=== PATIENT | male | born 1965 | race Hispanic/Latino ===

== ENCOUNTER → 2018-04-02 | Day surgery (SDC) | payer OTHER ==
[~2018-04-02] MED LIST: AMLODIPINE BESY10 MG PO; FENTANYL CITRATE/PF 100MCG/2 ML INJ ONE; HUMIRA INJ; HYOSCYAMINE SULFATE 0.5 MG/ML AMP ONE; MIDAZOLAM HCL 2 MG/2 ML VIAL ONE; PROPOFOL IV EMULSION 10 MG/ML 50 ML VIAL ONE
[2018-04-02 15:30] VITALS: BP 124/77
--- NOTE | 2018-04-02 19:47 | Operative Report ---
DATE OF PROCEDURE: April 02, 2018 REFERRING PHYSICIAN: Dana Qureshi MD PROCEDURE PERFORMED: Colonoscopy with polypectomy and biopsies. INDICATIONS FOR COLONOSCOPY: Colorectal cancer screening. MEDICATION: Patient was done under MAC. Please see anesthesiologist's note. PROCEDURE: With the patient in the left lateral decubitus position, the flexible fiberoptic Olympus colonoscope was inserted into the rectum with ease and advanced all the way to the cecum. It was then withdrawn slowly. Mucosa overlying the cecum, ascending colon, transverse colon, and descending colon appeared to be within normal limits. Two polyps were hot biopsied from the sigmoid colon. A submucosal nodule was noted in the distal rectum, and that was biopsied. The scope was then retroflexed into the distal rectum. Small internal hemorrhoids were noted, none of which was actively bleeding. The scope was then straightened out. It was subsequently withdrawn. Patient tolerated the procedure well. IMPRESSION 1. Sigmoid colon polyps times 2, hot biopsied. 2. Rectal submucosal nodule, biopsied. 3. Internal hemorrhoids, none actively bleeding. PLAN: Follow up histology. Initiate high-fiber, low-fat diet. Initiate high-fiber supplement. Timing of followup colonoscopy pending pathology report. Job#: [id number] cc:DANA QURESHI MD
== END | disposition home or self-care (01) ==
LOC: OR 11:45
PROVIDERS: ATTEND Internal Medicine Gastroenterology
DX: Z12.11 Encounter for screening for malignant neoplasm of colon (principal); D12.5 Benign neoplasm of sigmoid colon; K62.89 Other specified diseases of anus and rectum; K64.8 Other hemorrhoids; I10 Essential (primary) hypertension; L40.9 Psoriasis, unspecified; Z01.810 Encounter for preprocedural cardiovascular examination; Z68.32 Body mass index [BMI] 32.0-32.9, adult
CPT/HCPCS: 45380; 45384; 93005; J1980; J2250; 45378